=== PATIENT | male | born 2000 | race Caucasian/White ===

== ENCOUNTER 2024-10-17 15:11 | Emergency (ER) | payer SELFPAY ==
[~2024-10-17] VITALS: Ht 187.9 cm; Wt 99.8 kg
[2024-10-17] MEDS ORDERED: AVPAK AZITHROM250 M1 PO (15:33)
[2024-10-17] MEDS ORDERED: Dexamethasone Sodium Phospha 20 MG/5 ML VIAL IM ONE (15:35)
== END 2024-10-17 16:04 | disposition home or self-care (01) ==
LOC: ED 15:11
DX: J32.9 Chronic sinusitis, unspecified (principal); F17.290 Nicotine dependence, other tobacco product, uncomplicated